=== PATIENT | female | born 1985 | race Caucasian/White ===

== ENCOUNTER 2016-12-12 12:03 | Outpatient (CLI) | payer OTHER ==
[~2016-12-12] VITALS: Ht 157.5 cm; Wt 74.8 kg
[2016-12-12 12:23] VITALS: BP 122/74
[2016-12-12] MEDS ORDERED: PRENATAL TABLE1 EAC3 PO (12:44)
== END 2016-12-12 13:22 | disposition home or self-care (01) ==
LOC: LDRP-OP 12:03 → 2WEST 12:04 → LDRP-OP 01-27 12:56
DX: O47.1 False labor at or after 37 completed weeks of gestation (principal); O99.89 Other specified diseases and conditions complicating pregnancy, childbirth and the puerperium; Z3A.37 37 weeks gestation of pregnancy
CPT/HCPCS: 59025; G0378

== ENCOUNTER 2016-12-29 08:29 | Inpatient (IN) | payer OTHER ==
[~2016-12-29] VITALS: Ht 160 cm; Wt 78.0 kg
[2016-12-29] VITALS (16 sets, daily range): BP systolic 97–129; BP diastolic 56–87
[~2016-12-29 08:29] MED LIST: PRENATAL TABLE1 EAC3 PO
[2016-12-29 10:04] LABS: EOSINOPHIL (%) 0.7 % (0-5); EOSINOPHIL COUNT 0.1 K/uL (0-0.3); HEMATOCRIT 32.3 % (36.0-46.0); IMMATURE GRANULOCYTE (%) 0.3 % (0.0-0.7); LYMPHOCYTE COUNT 1.9 K/uL (1.0-2.8); MCH 27.1 PG (29.0-34.0); MCHC 32.5 G/DL (30.0-36.0); MCV 83.2 FL (83-99); MEAN PLAT.VOLUME 11.7 uM^3 (9.5-12.4); MONOCYTE (%) 7.5 % (3-12); MONOCYTE COUNT 0.9 K/uL (0-0.8); NEUTROPHIL (%) 74.7 % (45-76); NEUTROPHIL COUNT 8.6 K/uL (1.8-6.4); PLATELET COUNT 245 K/uL (156-360); RBC DIS.WIDTH-CV 13.3 % (11.8-14.6); RBC DIS.WIDTH-SD 40.3 % (39-53); RED BLOOD COUNT 3.88 M/uL (3.80-5.20); WHITE BLOOD COUNT 11.5 K/uL (4.1-10.2)
[2016-12-30 07:24] LABS: EOSINOPHIL COUNT 0.2 K/uL (0-0.3); HEMATOCRIT 30.7 % (36.0-46.0); IMMATURE GRANULOCYTE (%) 0.2 % (0.0-0.7); LYMPHOCYTE COUNT 2.4 K/uL (1.0-2.8); MCH 27.2 PG (29.0-34.0); MCHC 32.9 G/DL (30.0-36.0); MCV 82.5 FL (83-99); MEAN PLAT.VOLUME 11.3 uM^3 (9.5-12.4); MONOCYTE COUNT 0.7 K/uL (0-0.8); NEUTROPHIL (%) 59.6 % (45-76); NEUTROPHIL COUNT 4.8 K/uL (1.8-6.4); PLATELET COUNT 221 K/uL (156-360); RBC DIS.WIDTH-CV 13.4 % (11.8-14.6); RBC DIS.WIDTH-SD 40.4 % (39-53); RED BLOOD COUNT 3.72 M/uL (3.80-5.20); WHITE BLOOD COUNT 8.1 K/uL (4.1-10.2)
[2016-12-30 07:54] VITALS: BP 110/76
[2016-12-30 15:08] VITALS: BP 113/69
[2016-12-30 23:13] VITALS: BP 118/75
[2016-12-31 07:27] VITALS: BP 108/67
== END 2016-12-31 13:10 | disposition home or self-care (01) | DRG 775 ==
LOC: LDRP-OP 08:29 → 2WEST 08:30 → LDRP-OP 01-27 13:28
PROVIDERS: Advanced Practice Midwife
PROC: 10E0XZZ Delivery of Products of Conception, External Approach (ICD-10-PCS; principal; 2016-12-29)
PROC: 3E0R3CZ (ICD-10-PCS; principal; 2016-12-29)
PROC: 0HQ9XZZ Repair Perineum Skin, External Approach (ICD-10-PCS; principal; 2016-12-29)
PROC: 00HU33Z Insertion of Infusion Device into Spinal Canal, Percutaneous Approach (ICD-10-PCS; principal; 2016-12-29)
DX: O70.0 First degree perineal laceration during delivery (principal); O99.824 Streptococcus B carrier state complicating childbirth; Z3A.39 39 weeks gestation of pregnancy; Z37.0 Single live birth
CPT/HCPCS: 85025; C1755; J0290; J0595; J3010; J7050; J7120